=== PATIENT | male | born 1960 | race Caucasian/White ===

== ENCOUNTER 2019-12-16 06:06 | Day surgery (SDC) | payer OTHER ==
[2019-12-12 15:40] LABS: BASOPHILS % (AUTO) 0.3 % (0-1); EOSINOPHILS # (AUTO) 0.1 X10'3 (0-0.9); EOSINOPHILS % (AUTO) 1.5 % (0-6); LYMPHOCYTES # (AUTO) 1.9 X10'3 (1.1-4.8); LYMPHOCYTES % (AUTO) 27.9 % (21-51); MEAN CORPUSCULAR HEMOGLOBIN 32.4 PG (27.0-31.0); MEAN CORPUSCULAR HGB CONC 35.2 g/dL (33.0-36.5); MEAN PLATELET VOLUME 7.9 FL (7.4-10.4); MONOCYTES # (AUTO) 0.6 X10'3 (0-0.9); MONOCYTES % (AUTO) 8.4 % (2-12); NEUTROPHILS # (AUTO) 4.2 X10'3 (1.8-7.7); NEUTROPHILS % (AUTO) 61.9 % (42-75); PRE OP HEMATOCRIT 46.3 % (42.0-52.0); PRE OP HEMOGLOBIN 16.3 g/dL (14.0-17.9); PRE OP PLATELET COUNT 253 X10'3 (140-440); RED BLOOD COUNT 5.03 X10'6 (4.70-6.10); RED CELL DISTRIBUTION WIDTH 13.3 % (11.5-14.5)
[2019-12-12 16:00] LABS: ALBUMIN/GLOBULIN RATIO 1.2 (1.1-1.5); ALKALINE PHOSPHATASE 85 IU/L (46-116); BLOOD UREA NITROGEN 19 MG/DL (7-18); BUN/CREATININE RATIO 20.7 (5.4-32.0); CALCIUM 8.6 MG/DL (8.5-10.1); CHLORIDE 107 MMOL/L (99-107); CREATININE 0.92 MG/DL (0.60-1.10); PRE OP ALT 24 U/L (30-65); PRE OP ANION GAP 9 (8-16); PRE OP BILIRUB, TOTAL 0.4 MG/DL (0.0-1.0); PRE OP SODIUM 143 MMOL/L (135-145); TOTAL CARBON DIOXIDE 27.2 MMOL/L (24-32); TOTAL PROTEIN 7.4 G/DL (6.4-8.2); eGFR 84 ML/MIN
[2019-12-12 16:03] LABS: PRE OP AST 16 U/L (10-37); PRE OP GLUCOSE 88 MG/DL (70-104)
[~2019-12-16] VITALS: Ht 177.8 cm; Wt 94.0 kg
[2019-12-16] VITALS (10 sets, daily range): BP systolic 132–168; BP diastolic 71–94
[~2019-12-16 06:06] MED LIST: AMLO5TAB PO; PANT-47 PO; clindamycin-Cleocin 900mg/D5W 50 ML IV ONE; famotidine 20mg tablet PO ONE; ringers solution, lacted 1,000 ML IV SCH; vancomycin inj 1,500 MG in normal saline 300ml IV soln IV ONE
[2019-12-16] MEDS ORDERED: LIDOcaine 1% (10mg/ml) 2ml vial ONE (06:53)
[2019-12-16] MEDS ORDERED: fentaNYL/PF 50MCG/1 ML 2ML syringe ONE ×2 (07:15→08:40)
[2019-12-16] MEDS ORDERED: sevoflurane 250ml liquid IH ONE (07:15)
[2019-12-16] MEDS ORDERED: MIDAZolam 5mg/5ml vial ONE (07:20)
[2019-12-16] MEDS ORDERED: meperidine/PF 25mg/ml syringe IV PRN ×3 (08:25)
[2019-12-16] MEDS ORDERED: ondansetron/PF 4mg/2ml inj IV PRN (08:25)
[2019-12-16] MEDS ORDERED: proCHLORperazine 10 MG/2 ml inj IV PRN (08:25)
[2019-12-16] MEDS ORDERED: morphine 4 MG/ML inj SYRINge IV PRN ×2 (08:25)
[2019-12-16] MEDS ORDERED: ringers solution, lacted 1,000 ML IV SCH (08:25)
[2019-12-16] MEDS ORDERED: ROPIVAcaine 0.2%/PF PUMP/bolus 550 ML INTERSCALE SCH (08:26)
[2019-12-16] MEDS ORDERED: ROPIVAcaine 0.2% (10 MG/5 ML) BOLUS INJECTION INTERSCALE PRN (08:30)
[2019-12-16] MEDS ORDERED: propofol inj 20 ML IV ONE (08:39)
[2019-12-16] MEDS ORDERED: LIDOcaine 1%/PF 5ML 10 MG/ML VIAL ONE (08:39)
[2019-12-16] MEDS ORDERED: ondansetron/PF 4mg/2ml inj ONE (08:49)
[2019-12-16] MEDS ORDERED: ROPIVAcaine 0.5% (5mg/ml) 30ml vial ONE (08:49)
[2019-12-16] MEDS ORDERED: dexamethasone sod phosphate 4mg/ml inj. ONE (08:49)
--- NOTE | 2019-12-16 09:30 | NUR ---
Received from OR via BED, accompanied by Anesthesiologist DR SPAIN--- and report given by Anesthesiolgist. PATIENT A&OX4, DENIES PAIN, V/S WNL, NEUROVASCULAR CHECKS INTACT, 20G PIV RUE, SCD ON. DRESSING TO RIGHJT SHOULDER WITH SLING ON DRESSING IS CDI AND ON QUE BALL IS SET UP FOR USE TO RIGHT SHOULDER PER MD.
[2019-12-16] MEDS ORDERED: HYDROcodone/acetaminophen 10/325mg tab PO PRN (09:55)
--- NOTE | 2019-12-16 10:50 | NUR ---
PATIENT A&OX4, DENIES PAIN, V/S WNL, NEUROVASCULAR CHECKS INTACT, 20G PIV RUE D/C, SCD OFF. DRESSING TO RIGHT SHOULDER WITH SLING ON DRESSING IS CDI AND ON-Q BALL IS SET UP 4ML/HR FOR USE TO RIGHT SHOULDER AND PATIENT WAS GIVEN INSTRUCTIONS ON ITS USE AND GIVEN HANDOUT ON ITS USE AND CARE WELL.. I HAVE REVIEWED D/C INSTRUCTIONS WITH PATIENT AND FAMILY AND THEY HAVE VERBALIZED UNDERSTANDING. PATIENT D/C HOME WITH ALL BELONGINGS AND FAMILY GAVE TRANSPORT HOME.
== END 2019-12-16 10:50 | disposition home or self-care (01) ==
LOC: PAS 06:06 → EDSTATUS 08:30 → PAS 10:50
PROVIDERS: ATTEND Orthopaedic Surgery
DX: S46.011A Strain of muscle(s) and tendon(s) of the rotator cuff of right shoulder, initial encounter (principal); M75.21 Bicipital tendinitis, right shoulder; M75.51 Bursitis of right shoulder; M19.011 Primary osteoarthritis, right shoulder; I10 Essential (primary) hypertension; G89.18 Other acute postprocedural pain; Z87.891 Personal history of nicotine dependence; Z72.89 Other problems related to lifestyle; Z88.8 Allergy status to other drugs, medicaments and biological substances; Z79.899 Other long term (current) drug therapy; X58.XXXA Exposure to other specified factors, initial encounter; Y93.89 Activity, other specified; Y92.89 Other specified places as the place of occurrence of the external cause; Y99.8 Other external cause status
CPT/HCPCS: 29824; 29826; 29827; 36415; 64415; 80053; 82948; 85025; 93005; C1713; J1100; J2001; J2250; J2405; J2704; J2795; J3010; J3370; J7120; A4565; A4618; A6449; A7000; J3490